=== PATIENT | male | born 1995 | race Two or more races ===

== ENCOUNTER → 2020-01-14 | Day surgery (SDC) | payer OTHER ==
[2020-01-14] VITALS (13 sets, daily range): BP systolic 107–134; BP diastolic 61–84
[~2020-01-14] VITALS: Ht 188 cm; Wt 84.8 kg
[~2020-01-14] MED LIST: Bupivacaine 0.25% Inj 30ml INJ ONE; D5 1/2NS 1,000 ML IV SCH; EPINEPHrine 1mg/1ml Amp ONE; Glycopyrrolate 0.2mg/ml 1ml Vial ONE; HYDROcodone/Acetamin 5/325 tab ORAL PRN; HYDROmorphone 1mg/ml Carpuject SUBQ PRN; Kenalog-40 1ml Vial ONE; Ketorolac 30mg Inj ONE; LR 1000ml ONE; Lidocaine 1% MPF 10mg/ml 5ml ONE; Metoclopramide 10mg/2ml Inj ONE; Midazolam 2mg/2ml Inj ONE; NS Irrig 4000ml IRRIG ONE; Neostigmine 1mg/ml 10ml Inj ONE; Rocuronium Bromide 100mg/10ml Inj IV ONE; Ropivacaine 5mg/ml Vial 20ml INJ ONE; Tylenol #3 tab (300mg/30mg) ORAL PRN; ceFAZolin 1gm IVPB IVPB ONE; celeBREX 200mg Cap **SURGERY PATIENTS ONLY ORAL ONE; fentaNYL 100 mcg/2 mL IV ONE; fentaNYL 100 mcg/2 mL IV PRN; oxyCONTIN 20mg tab ORAL ONE
--- NOTE | 2020-01-14 07:39 | Operative Note - PDOC ---
Operative Note Operative Note Pre-op Diagnosis: left shoulder impingement Procedure: see op report Post-op Diagnosis: same as pre-op plus Operative Findings: consistent w/pre-op dx studies Anesthesia: regional Specimen: none Complications: none Condition: stable Estimated Blood Loss: none Implant(s) used?: No Ramos Rob MD Jan 14, 2020 07:39
--- NOTE | 2020-01-14 07:39 | Pre-Procedure Note/Attestation ---
Pre-Procedure Note/Attestation Complete Prior to Procedure Planned Procedure: left Procedure Narrative: shoulder arthroscopy, sad Indications for Procedure Pre-Operative Diagnosis: left shoulder impingement Attestation I attest that I discussed the nature of the procedure; its benefits; risks and complications; and alternatives (and the risks and benefits of such alternatives ), prior to the procedure, with the patient (or the patient's legal renewals representative). I attest that, if there was a reasonable possibility of needing a blood transfusion, the patient (or the patient's legal renewals representative) was given the [facility] standardized written summary, pursuant to the Nik Subhash Blood Safety Act ([place] Health and Safety Code # 1645, as amended). I attest that I re-evaluated the patient just prior to the surgery and that there has been no change in the patient's H&P, except as documented below: Ramos Rob MD Jan 14, 2020 07:39
--- NOTE | 2020-01-14 09:15 | Immediate Post-Op Evaluation ---
Immediate Post-Op Evalulation Immediate Post-Op Evalulation Procedure: left shoulder arthroscopy Date of Evaluation: Jan 14, 2020 Time of Evaluation: 09:10 IV Fluids: 500 Blood Pressure Systolic: 129 Blood Pressure Diastolic: 73 Pulse Rate: 90 Respiratory Rate: 14 O2 Sat by Pulse Oximetry: 99 Temperature (Fahrenheit): 97.5 Nausea: No Vomiting: No Patient Status: awake, reacts, patent Hydration Status: adequate Drug: ancef Given Within 1 Hr of Incision: Yes Time Given: 07:45 Yanique Pinedo CRNA Jan 14, 2020 09:15
--- NOTE | 2020-01-14 09:20 | Anethesia Preoperative Eval ---
Anesthesia Pre-op PMH/ROS General Date of Evaluation: Jan 14, 2020 Time of Evaluation: 07:30 Anesthesiologist: wilma ASA Score: ASA 2 Mallampati Score Class I : Soft palate, uvula, fauces, pillars visible Class II: Soft palate, uvula, fauces visible Class III: Soft palate, base of uvula visible Class IV: Only hard plate visible Mallampati Classification: Class II Surgeon: fausto Diagnosis: shoulder pain Surgical Procedure: left shoulder arthroscopy Anesthesia History: none Social History: smoking, current smoker Family History: no anesthesia problems Allergies: Coded Allergies: No Known Allergies (Unverified , 01/14/20) Medications: see eMAR Patient NPO?: Yes NPO Date: Jan 14, 2020 NPO Time: 00:01 Past Medical History Cardiovascular: Denies: HTN, CAD, ND, valve dz, arrhythmia, other Pulmonary: Denies: asthma, COPD, MELANIE, other Endocrine: Denies: DM, hypothyroidism, steroids, other HEENT: Denies: cataract (L), cataract (R), glaucoma, [place] (L), [place] (R), other Hematology/Immune: Denies: anemia, DVT, bleeding disorder, other PSxH Narrative: none Anesthesia Pre-op Phys. Exam Physician Exam Last Vital Signs Date Time Temp Pulse Resp B/P (MAP) Pulse Ox O2 Delivery O2 Flow Rate FiO2 01/14/20 07:06 Room Air 01/14/20 06:53 97.5 53 18 127/80 99 Constitutional: NAD Neurologic: CN 2-12 intact Cardiovascular: RRR Respiratory: CTA Gastrointestinal: S/NT/ND Airway Exam Mallampati Classification 2 Mallampati Score: Class II MO: full Neck: normal ROM: full Dentures: no upper, no lower Anesthesia Pre-op A/P Studies Pre-op Studies: EKG - sr Risk Assessment & Plan Assessment: denies changes Plan: General / peripheral nerve block Status Change Before Surgery: No Pre-Antibiotics Drug: ancef Given Within 1 Hr of Incision: Yes Time Given: 07:45 Yanique Pinedo CRNA Jan 14, 2020 09:20
--- NOTE | 2020-01-14 10:15 | Operative Note - Dictated ---
DATE OF OPERATION: 01/14/2020 PREOPERATIVE DIAGNOSIS: Left shoulder impingement syndrome/bursitis. POSTOPERATIVE DIAGNOSIS: Left shoulder impingement syndrome/bursitis. PROCEDURES: 1. Left shoulder diagnostic arthroscopy. 2. Left shoulder bursoscopy and bursectomy. SURGEON: Ramos Rob MD. ANESTHESIA: Interscalene with general. INDICATION FOR PROCEDURE: The patient is a pleasant gentleman, who is continued to have left shoulder pain. He had MRI, which showed a type 2 acromion with some subdeltoid bursitis. He had continued pain despite conservative treatment and elected to undergo left shoulder arthroscopy and subacromial decompression bursectomy. Risks, limitations, expectations, and complications were discussed in detail. All questions addressed. DESCRIPTION OF PROCEDURE: After informed consent was obtained, the patient was brought to operating room. The patient was placed under interscalene general anesthesia. Left shoulder was prepped and draped in a sterile manner. Time-out was performed. Inferolateral stab incision was then made. Trocar was introduced in the glenohumeral joint. Systematic tour of the shoulder was performed. There was no chondral damage. Anterior labrum was intact along with the superior labrum. Biceps tendon was intact. No gross subluxation. Undersurface of the rotator cuff extending infraspinatus was intact. Camera was repositioned in the subacromial space. Complete bursectomy was performed. There was some fraying of the coracoclavicular ligament along the anterior aspect of the acromion. It was felt that the formal decompression of the acromion was not needed. Bursectomy was then completed from posterior into the suprapatellar and posterior access. Once complete bursectomy was performed, bursal side of the rotator cuff was evaluated and noted to be intact. The instruments were removed. Skin was sutured up. The patient was awoken and taken to recovery room with stable vital signs. ESTIMATED BLOOD LOSS: None. COMPLICATIONS: None. SPECIMENS: None. IMPLANTS: None. Ramos Rob M.D. DR: TODD JOB#: [id number] CC:
--- NOTE | 2020-01-14 12:05 | NUR ---
Complained of severe nausea but emesis noted. Patient medicated with Zofran as ordered.
== END | disposition home or self-care (01) ==
LOC: SUR 05:58
DX: M75.42 Impingement syndrome of left shoulder (principal); M71.9 Bursopathy, unspecified; F17.210 Nicotine dependence, cigarettes, uncomplicated
CPT/HCPCS: 29822; 94003; J0171; J0690; J1885; J2250; J2405; J2704; J2710; J2765; J2795; J3010; J3301; J3490; J7120; 94150